=== PATIENT | female | born 1965 | race Caucasian/White ===

== ENCOUNTER → 2021-03-08 | Day surgery (SDC) | payer OTHER ==
[~2021-03-08] VITALS: Ht 154.9 cm; Wt 95.2 kg
[~2021-03-08] MED LIST: ADVAIR 100-501 EACH INH; ASPIRIN EC81 MG PO; CLARITIN10 MG PO; COZAAR100 MG PO; FLONASE ALLER15.8 ML; FLUOXETINE HCL40 MG PO; HCTZ25 MG PO; LEVOTHYROXINE50 MCG PO; METFORMIN HCL500 M1 PO; ONE DAILY FOR1 EAC3 PO; PAIN RELIEF PM1 EACH PO
[2021-03-08 09:03] LABS: HCT 37.9 % (37.0-47.0); HGB 12.1 g/dl (12.5-16.0); MCH 26.1 pg (25.0-31.0); MCHC 31.9 g/dL (32.0-36.0); MCV 81.9 fL (78.0-100.0); MPV 10.1 fL (6.0-9.5); RBC 4.63 M/uL (4.20-5.40); RDW 15.7 % (11.5-14.0); WBC 9.3 K/uL (4.0-10.5)
[2021-03-08 09:09] LABS: ALBUMIN 3.9 g/dL (3.4-5.0); BILIRUBIN - TOTAL 0.5 mg/dL (0.2-1.0); BUN/CREAT RATIO (CALC) 18.8 RATIO; CREATININE 0.64 mg/dL (0.51-0.95); POTASSIUM 3.6 mmol/L (3.5-5.1); TOTAL PROTEIN 7.9 g/dL (6.4-8.2)
== END | disposition home or self-care (01) ==
LOC: FAS 01-11 08:45
PROVIDERS: Surgery
DX: Z12.11 Encounter for screening for malignant neoplasm of colon (principal); E11.9 Type 2 diabetes mellitus without complications; J44.9 Chronic obstructive pulmonary disease, unspecified; E03.9 Hypothyroidism, unspecified; F41.9 Anxiety disorder, unspecified; M19.90 Unspecified osteoarthritis, unspecified site; F32.9 Major depressive disorder, single episode, unspecified; I10 Essential (primary) hypertension; G43.909 Migraine, unspecified, not intractable, without status migrainosus; G47.30 Sleep apnea, unspecified; Z87.891 Personal history of nicotine dependence; Z88.1 Allergy status to other antibiotic agents; Z91.040 Latex allergy status; Z88.8 Allergy status to other drugs, medicaments and biological substances; Z79.82 Long term (current) use of aspirin; Z79.84 Long term (current) use of oral hypoglycemic drugs; Z79.899 Other long term (current) drug therapy
CPT/HCPCS: 36415; 80053; J0690; J1644; J2704; J7120